=== PATIENT | female | born 2000 | race African-American/Black ===

== ENCOUNTER 2023-01-24 22:15 | Observation (INO) | payer OTHER ==
[~2023-01-24] VITALS: Ht 162.6 cm; Wt 65.8 kg
[2023-01-24] MEDS ORDERED: LACTATED RINGERS 1,000 ML IV ONE (23:00)
[2023-01-24] MEDS ORDERED: ACETAMINOPHEN 325MG TABLET ONE (23:18)
[2023-01-24 23:22] VITALS: TEMP 98
[2023-01-24 23:45] LABS: BASOPHILS % 0.2 % (0.0-2.0); EOSINOPHILS % 0.3 % (0.0-5.0); HEMATOCRIT. 29.5 % (36.0-48.0); HEMOGLOBIN. 10.2 g/dL (12.0-16.0); LYMPHOCYTES % 10.7 % (20.0-50.0); MEAN CORPUSCULAR HEMOGLOBIN 32.4 pg (28.0-32.0); MEAN CORPUSCULAR VOLUME 93.6 fL (81.0-99.0); MEAN PLATELET VOLUME 8.1 fl (7.4-10.4); NEUTROPHILS % 80.8 % (40.0-76.0); PLATELET 242 x1000/uL (130-400); RED BLOOD CELL COUNT 3.14 mill/uL (4.2-5.4); RED CELL DISTRIBUTION WIDTH 12.7 % (11.6-14.6)
[2023-01-25 01:27] LABS: CLARITY URINE CLOUDY (CLEAR); COLOR URINE YELLOW (YELLOW); KETONES URINE 3+ (NEGATIVE); LEUKOCYTE ESTERASE URINE TRACE (NEGATIVE); NITRITE URINE NEGATIVE (NEGATIVE); OCCULT BLOOD URINE NEGATIVE (NEGATIVE); PROTEIN URINE 1+ (NEGATIVE); SPECIFIC GRAVITY URINE 1.028 (1.005-1.030)
[2023-01-25] MEDS ORDERED: PNV (02:00)
== END 2023-01-25 02:16 | disposition home or self-care (01) ==
LOC: ER 22:15 → 8 EST LDRP 22:56
PROVIDERS: ADMIT Obstetrics & Gynecology; ATTEND Obstetrics & Gynecology
DX: O99.891 Other specified diseases and conditions complicating pregnancy (principal); M54.9 Dorsalgia, unspecified; R10.9 Unspecified abdominal pain; Z3A.30 30 weeks gestation of pregnancy; W19.XXXA Unspecified fall, initial encounter; Y92.89 Other specified places as the place of occurrence of the external cause; Y93.89 Activity, other specified; Y99.8 Other external cause status
CPT/HCPCS: 96360; 96361 ×2; 99281; 81003; 85025; 36415; 76818; 76805; 59025; G0378 ×3; G0379